=== PATIENT | female | born 1965 | race Caucasian/White ===

== ENCOUNTER 2016-09-04 10:22 | Inpatient (IN) | payer OTHER ==
[2016-09-01 14:33] LABS: BASOPHILS 0.3 %; BASOPHILS ABSOLUTE 0.02 10/3/uL (0.0-0.16); EOSINOPHILS 1.9 %; EOSINOPHILS ABSOLUTE 0.13 10/3/uL (0.0-0.53); HEMATOCRIT 38.7 % (36.0-48.0); HEMOGLOBIN 13.3 g/dL (12.0-16.0); IMMATURE GRANULOCYTES 0.1 %; IMMATURE GRANULOCYTES ABSOLUTE 0.01 10/3/uL (0.0-0.11); LYMPHOCYTES 39.6 %; LYMPHOCYTES ABSOLUTE 2.69 10/3/uL (0.67-4.30); MEAN CORPUS HGB CONC 34.4 g/dL (32.0-36.0); MEAN CORPUSCULAR HEMOGLOB 32.4 pg (26.0-34.0); MEAN CORPUSCULAR VOLUME 94.2 fL (80-100); MEAN PLATELET VOLUME 11.7 fL (9.2-13.0); MONOCYTES 6.2 %; MONOCYTES ABSOLUTE 0.42 10/3/uL (0.21-1.20); NEUTROPHILS 51.9 %; NEUTROPHILS ABSOLUTE 3.53 10/3/uL (2.02-8.40); PLATELET COUNT 179 10/3/uL (150-400); RBC DISTRIBUTION WIDTH 13.3 % (12.0-16.0); RED CELL COUNT 4.11 10/6/uL (4.0-5.6); WHITE BLOOD CELLS 6.8 10/3/uL (4.5-10.5)
[2016-09-01 14:34] LABS: MANUAL DIFF NO %
[2016-09-01 14:36] LABS: ASCORBIC ACID (UR NOT ORDER) NEG (NEG); BILIRUBIN, URINE NEGATIVE (NEG); KETONE, URINE NEGATIVE (NEG); LEUKOCYTE ESTERASE(NOT OR NEG (NEG); WBC (NOT ORDERED) (RFLEX) < 1 (0-5)
[2016-09-01 14:48] LABS: A/G RATIO 0.9 (0.7-1.9); ALKALINE PHOSPHATASE 84 U/L (45-117); BUN (BLOOD UREA NITROGEN) 30 MG/DL (6-23); CALCIUM, SERUM 8.9 MG/DL (8.5-10.4); CHLORIDE, SERUM 104 MMOL/L (96-112); CO2 (CARBON DIOXIDE) 26 MMOL/L (24-34); CREATININE 0.94 MG/DL (0.55-1.02); GFR AFRICAN AMERICAN 81 ML/MIN (>=60); GFR NON AFRICAN AMERICAN 70 ML/MIN (>=60); GLOBULIN 4.3 G/DL (2.5-4.1); GLUCOSE, SERUM 107 MG/DL (60-99); POTASSIUM, SERUM 4.6 MMOL/L (3.5-5.3); SGOT(AST) 24 U/L (5-40); SGPT(ALT) 36 U/L (5-65); SODIUM, SERUM 139 MMOL/L (135-148); TOTAL BILIRUBIN 0.3 MG/DL (0-1.2); TOTAL PROTEIN 8.3 G/DL (6.0-8.5)
--- NOTE | ~2016-09-04 | OP ---
Record Of Operation [facility] [address] [place]. [address] NAME: NORMAN CABRERA : 65 STATUS : ADM IN PAT#: [id number] AGE: 51 ADM/REG DATE : 09/04/16 MR#: [id number] REPORT SERV DATE: 09/05/16 DICTATED BY: RAMIRO HEBERT JR. DATE: 09/04/16 REPORT STATUS : Draft TRANSCRIBED BY: MODDonavan DATE: 09/04/16 DATE OF PROCEDURE: 09/04/2016 PREOPERATIVE DIAGNOSES: Stage IA non-small cell lung cancer, right upper lobe, indeterminate multiple bilateral pulmonary nodules, mediastinal lymphadenopathy, severe COPD, chronic pain syndrome, depression, peripheral neuropathy. POSTOPERATIVE DIAGNOSES: Stage IA non-small cell lung cancer, right upper lobe, indeterminate multiple bilateral pulmonary nodules, mediastinal lymphadenopathy, severe COPD, chronic pain syndrome, depression, peripheral neuropathy. No evidence of multifocal disease. NAME OF OPERATION: Bronchoscopy, right thoracoscopy with lysis of adhesions, right upper lobe wedge excision for diagnosis, completion of right upper lobectomy, complete mediastinal node dissection, azul stations 7, 8, 10R, 11R, and intercostal nerve block. RESIDENT SURGEON: Chicho Smalls MD JUNIOR MARKETING ASSOCIATE: Urbano Vidales. ANESTHESIA: General endotracheal. FINDINGS: The patient was noted to have no endobronchial lesions or contraindications to resection. There were mucous secretions that were evacuated. Upon entering the chest, there were a moderate amount of adhesions which took an extra 45 minutes of operative time to take down the adhesions. There was an abnormality seen both in the upper lobe as well as in the middle lobe. It was in the region where the PET activity was present. This was separate from the known cancer. She has also had multiple pulmonary nodules that were indeterminate. We went ahead and wedged out this area in the right upper lobe just to make sure there was no evidence of multifocality of her adenocarcinoma. This wedge excision was negative. Decision was made to go ahead and complete the right upper lobectomy. Frozen section confirmed a non-small cell lung cancer in the right upper lobe. Final pathology is pending. DETAILS OF OPERATION: After adequate general anesthesia, the patient was intubated. A bronchoscopy was performed, noting no endobronchial lesions or contraindications to resection. Mucous secretions were evacuated. Left-sided double-lumen endotracheal tube was then placed. The patient was then positioned in the left lateral decubitus position, and the right chest was prepped and draped in a routine sterile fashion. A small incision was made overlying the lower intercostal space. A separate anterior trocar incision was also made. Through these 2 incision sites, the above findings were noted. The adhesions were taken down with electrocautery as well as blunt and sharp dissection. This took an extra 45 minutes just to be able to mobilize the right upper lobe. We then solved the visual abnormalities on the surface of the lung tissue that were also present in the other lobes. We made decision to wedge out this area in the right upper lobe which was also in a region that there was additional uptake on PET scan. Frozen section confirmed no evidence of Record Of Operation [address] [address] NAME: NORMAN CABRERA : 65 STATUS : ADM IN PAT#: [id number] AGE: 51 ADM/REG DATE : 09/04/16 MR#: [id number] REPORT SERV DATE: 09/05/16 DICTATED BY: RAMIRO HEBERT JR. DATE: 09/04/16 REPORT STATUS : Draft TRANSCRIBED BY: MELANIA DATE: 09/04/16 malignancy. We made a decision to go ahead and resect the right upper lobe where the tumor was located. The inferior pulmonary ligament was taken down. Both superior and inferior pulmonary veins were identified. The hilar structures were dissected out. The right superior pulmonary vein was then transected, preserving the middle lobe branch. The pulmonary arterial branches were then divided with multiple firings of a vascular stapler. The bronchus was divided with a DORIS stapler. The fissure was divided with multiple firings of DORIS stapler with tissue reinforcements. There was bleeding around 1 of the arterial branches that had been stapled off. A 4-0 pledgeted suture was placed in this area in which we had good hemostasis. The specimen was removed through the anterior trocar site. Sterile water was used to irrigate the chest cavity. After watching this area for a while and seeing no evidence of bleeding, we went ahead and placed a 28-Azeri chest tube. An intercostal nerve block was performed. The lung was reinflated. The trocar sites were closed with running Vicryl sutures. The skin was closed with running monofilament suture. A Dermabond dressing was applied, and the procedure was terminated at this point. The patient tolerated the procedure well and was taken back to the recovery room in a stable condition. SHANELLE/MELANIA Ramiro Hebert Jr., M.D. / [id number] CC: Tyshawn Rahman Jr., NP Upasana Bardhan Chakraboty, MD Sumana Nagireddy, MD
[~2016-09-04 10:22] MED LIST: ABILIFY30 MG PO; ALBUTEROL0.083 % INH; AMOXIL875 PO; BREO ELLIPTA INH; CLARITD24H PO; COLON HEALTH PO; EMBEDA1 CA1 PO; FOSAMAX70 MG PO; MELATONIN10 M2 PO; NEUR300 PO; OXYCON10 PO; PROVHFA INH; VITAMIN D31000 UNIT PO; VITC500 PO; ZANAFLEX 4 MG TA4 MG PO
[2016-09-04 18:00] LABS: HEMATOCRIT 36.1 % (36.0-48.0); HEMOGLOBIN 12.2 g/dL (12.0-16.0); MEAN CORPUS HGB CONC 33.8 g/dL (32.0-36.0); MEAN CORPUSCULAR HEMOGLOB 31.8 pg (26.0-34.0); MEAN PLATELET VOLUME 11.1 fL (9.2-13.0); PLATELET COUNT 133 10/3/uL (150-400); RBC DISTRIBUTION WIDTH 13.3 % (12.0-16.0); RED CELL COUNT 3.84 10/6/uL (4.0-5.6)
[2016-09-04 18:06] LABS: MANUAL DIFF YES %; WHITE BLOOD CELLS 10.2 10/3/uL (4.5-10.5)
[2016-09-04 18:11] LABS: CALCIUM, SERUM 8.4 MG/DL (8.5-10.4); CHLORIDE, SERUM 109 MMOL/L (96-112); CO2 (CARBON DIOXIDE) 22 MMOL/L (24-34); CREATININE 0.72 MG/DL (0.55-1.02); GFR AFRICAN AMERICAN 112 ML/MIN (>=60); GFR NON AFRICAN AMERICAN 97 ML/MIN (>=60); GLUCOSE, SERUM 127 MG/DL (60-99); SODIUM, SERUM 141 MMOL/L (135-148)
[2016-09-04 18:12] LABS: BUN (BLOOD UREA NITROGEN) 21 MG/DL (6-23)
[2016-09-04 18:58] LABS: BAND NEUTROPHILS 20 %; LYMPHOCYTES 5 %; LYMPHOCYTES ABSOLUTE (CALC) 0.51 10/3/uL (0.67-4.30); NEUTROPHILS ABSOLUTE (CALC) 9.69 10/3/uL (2.02-8.40); PLATELET ESTIMATE ADQ (ADEQUATE); RBC MORPHOLOGY NORM (NORMAL); SEGMENTED NEUTROPHIL (0) 75 %; TOTAL NUCLEATED CELLS 100
[2016-09-05 04:43] LABS: BASOPHILS 0 %; EOSINOPHILS 0 %; HEMATOCRIT 33.1 % (36.0-48.0); HEMOGLOBIN 11.2 g/dL (12.0-16.0); IMMATURE GRANULOCYTES 0.1 %; IMMATURE GRANULOCYTES ABSOLUTE 0.01 10/3/uL (0.0-0.11); LYMPHOCYTES 14.7 %; LYMPHOCYTES ABSOLUTE 1.03 10/3/uL (0.67-4.30); MANUAL DIFF NO %; MEAN CORPUS HGB CONC 33.8 g/dL (32.0-36.0); MEAN CORPUSCULAR HEMOGLOB 31.8 pg (26.0-34.0); MEAN PLATELET VOLUME 11.9 fL (9.2-13.0); MONOCYTES 5.6 %; MONOCYTES ABSOLUTE 0.39 10/3/uL (0.21-1.20); NEUTROPHILS 79.6 %; NEUTROPHILS ABSOLUTE 5.57 10/3/uL (2.02-8.40); PLATELET COUNT 132 10/3/uL (150-400); RBC DISTRIBUTION WIDTH 13.2 % (12.0-16.0); RED CELL COUNT 3.52 10/6/uL (4.0-5.6)
[2016-09-05 04:51] LABS: CALCIUM, SERUM 8.3 MG/DL (8.5-10.4); CHLORIDE, SERUM 104 MMOL/L (96-112); CO2 (CARBON DIOXIDE) 24 MMOL/L (24-34); GFR AFRICAN AMERICAN 99 ML/MIN (>=60); GFR NON AFRICAN AMERICAN 85 ML/MIN (>=60); GLUCOSE, SERUM 141 MG/DL (60-99); POTASSIUM, SERUM 4.4 MMOL/L (3.5-5.3); SODIUM, SERUM 137 MMOL/L (135-148)
[2016-09-05 04:54] LABS: BUN (BLOOD UREA NITROGEN) 15 MG/DL (6-23)
[2016-09-06] MEDS ORDERED: PCET PO (15:02)
== END 2016-09-06 16:45 | disposition home or self-care (01) | DRG 164 ==
LOC: SDC/OF 10:22 → PACU 17:20 → 5NO 19:22
PROVIDERS: Thoracic Surgery (Cardiothoracic Vascular Surgery)
PROC: 07B74ZZ Excision of Thorax Lymphatic, Percutaneous Endoscopic Approach (ICD-10-PCS; 2016-09-04)
PROC: 0BNC4ZZ Release Right Upper Lung Lobe, Percutaneous Endoscopic Approach (ICD-10-PCS; 2016-09-04)
PROC: 0BJ08ZZ Inspection of Tracheobronchial Tree, Via Natural or Artificial Opening Endoscopic (ICD-10-PCS; 2016-09-04)
PROC: 3E0T3BZ Introduction of Anesthetic Agent into Peripheral Nerves and Plexi, Percutaneous Approach (ICD-10-PCS; 2016-09-04)
PROC: 0BTC4ZZ Resection of Right Upper Lung Lobe, Percutaneous Endoscopic Approach (ICD-10-PCS; principal; 2016-09-04 12:45)
PROC: 0BBC4ZX Excision of Right Upper Lung Lobe, Percutaneous Endoscopic Approach, Diagnostic (ICD-10-PCS; 2016-09-04 12:45)
DX: C34.11 Malignant neoplasm of upper lobe, right bronchus or lung (principal); J95.812 Postprocedural air leak; J44.9 Chronic obstructive pulmonary disease, unspecified; G62.9 Polyneuropathy, unspecified; F32.9 Major depressive disorder, single episode, unspecified; G89.4 Chronic pain syndrome; J98.4 Other disorders of lung
CPT/HCPCS: 36415; 71010; 71020; 80048; 80053; 81001; 82962; 83036; 85025; 85610; 86850; 86900; 86901; 87641; 88305; 88307; 88309; 88312; 88331; 93005; 94640; A9270-GY; C1729; J0690; J1885; J2250; J2405; J2710; J2795; J3010